=== PATIENT | male | born 1960 | race Caucasian/White ===

== ENCOUNTER 2016-05-26 05:05 | Inpatient (IN) | payer OTHER ==
[2016-05-11 13:34] VITALS: BMI 26.0
[~2016-05-26] VITALS: Ht 172.7 cm; Wt 77.2 kg
[2016-05-26] VITALS (8 sets, daily range): BP systolic 117–144; BP diastolic 70–85; PULSE 70–107; TEMP 36.4–37; O2SAT 97–100; Ht 172.7 cm; Wt 77.2 kg
[~2016-05-26 05:05] MED LIST: CITA20TA4 PO; LISI-461 PO; MONT1TAB3 PO; OXYC-57 PO; PRLSR20 PO
[2016-05-26] MEDS ORDERED: PREGABALIN 75 MG CAP PO SCH (06:00)
[2016-05-26] MEDS ORDERED: CeleBREX 200 MG CAP PO SCH (06:00)
[2016-05-26] MEDS ORDERED: CEFAZOLIN 2000 MG/60 ML D5W IV SCH (06:00)
[2016-05-26] MEDS ORDERED: LACTATED RINGER'S 1000ML 1,000 ML IV SCH (06:00)
[2016-05-26] MEDS ORDERED: MIDAZOLAM HCL 1 MG/ML 2ML VIAL ONE (06:37)
[2016-05-26] MEDS ORDERED: FENTANYL CITRATE INJ 50 MCG/1 ML 2 ML VIAL ONE ×3 (06:37→08:23)
[2016-05-26] MEDS ORDERED: THROMBIN FOR SOLN 20000 UNIT KIT ONE (06:50)
[2016-05-26] MEDS ORDERED: THROMBIN 5000 UNITS KIT ONE (06:50)
[2016-05-26] MEDS ORDERED: BUPIVACAINE/EPINEPHRINE 0.5% MPF 1:200,000 30 ML VIAL ONE (06:50)
[2016-05-26] MEDS ORDERED: BACITRACIN 50000 UNIT VIAL ONE (06:50)
[2016-05-26] MEDS ORDERED: HEPARIN SOD (PORCINE) 1000 UNIT/ML 10 ML VIAL ONE (06:50)
[2016-05-26] MEDS ORDERED: EpHEDrine SULFATE INJ 50 MG/ML AMP IV PRN (07:45)
[2016-05-26] MEDS ORDERED: ATROPINE SULFATE 0.1 MG/ML 5ML SYR IV PRN (07:45)
[2016-05-26] MEDS ORDERED: ONDANSETRON INJ 2 MG/ML 2 ML VIAL IV PRN ×2 (07:45→10:00)
--- NOTE | 2016-05-26 07:54 | History and Physical ---
History & Physical Date May 26, 2016. Chief Complaint LBP and R leg radicular pain History of Present Illness The patient is a 55 year old male with complaints of above who had a prior decompression at L4-5 on right. He developed recurrent pain with numbness and weakness that failed to respond to RUMA/PT/oral meds. He is using a cane and unable to work. MRI shows foraminal HNP R L4-5 and L5-S1. no left leg symptoms. Past Medical/Surgical History sinus surgery [place]-CPAP HTN hi chol reflux OA anxiety tob use Additional History Hepatic Disease: No Endocrine Disorder: No Kidney Disease: No Hypertension: Yes Heart Disease: No Bleeding Tendencies: No Infectious Diseases: No Allergies Coded Allergies: No Known Allergies (Unverified , 05/26/16) Home Medications Scheduled Citalopram Hydrobromide (Citalopram Hydrobromide), 1 TAB PO QAM Lisinopril (Zestril), 10 MG PO QAM Montelukast Sodium (Singulair), 10 MG PO QAM Omeprazole (Prilosec), 20 MG PO QAM Scheduled PRN Oxycodone/Acetaminophen 5MG/325MG (Percocet 5MG/325MG), 1 TABLET PO Q6H PRN for Pain Physical Examination Skin: warm/dry Eyes: normal inspection Head: normocephalic, atraumatic Neck: supple, trachea midline Respiratory/Chest: lungs clear, no respiratory distress Cardiovascular: regular rate, rhythm Back: normal inspection ( midline scar) Extremities: normal inspection, normal range of motion Neurologic/Psych: no motor/sensory deficits (except sl weakness in R ankle DF and positive R SLR), alert, normal reflexes, oriented x 3 Diagnosis L4-5 recurrent HNP, and L5-S1 foraminal HNP Plan of Treatment L4-S1 decompression/fusion
[2016-05-26] MEDS ORDERED: HYDROmorphone INJ 2 MG/ML SYR/VIAL ONE ×2 (08:23→09:40)
[2016-05-26] MEDS ORDERED: LIDOCAINE HCL 2% 2 ML VIAL (20MG/ML) ONE (09:39)
[2016-05-26] MEDS ORDERED: PROPOFOL IV EMULSION 10 MG/ML 20 ML VIAL IV ONE (09:39)
[2016-05-26] MEDS ORDERED: EpHEDrine SULFATE 50MG/5ML SYR ONE (09:39)
[2016-05-26] MEDS ORDERED: ROCURONIUM BROMIDE 10 MG/ML 5 ML VIAL ONE (09:39)
[2016-05-26] MEDS ORDERED: DEXAMETHASONE SOD INJ 4 MG/ML VIAL ONE (09:39)
[2016-05-26] MEDS ORDERED: ESMOLOL HCL 10 MG/ML 10 ML VIAL ONE (09:39)
[2016-05-26] MEDS ORDERED: NEOSTIGMINE METHYLSULFATE 1 MG/ML 10ML VIAL ONE (09:41)
[2016-05-26] MEDS ORDERED: GLYCOPYRROLATE INJ 0.2 MG/ML VIAL ONE (09:41)
[2016-05-26] MEDS ORDERED: ONDANSETRON INJ 2 MG/ML 2 ML VIAL ONE (09:41)
[2016-05-26] MEDS ORDERED: SODIUM CHLORIDE 0.9% 1000ML 1,000 ML IV SCH (09:53)
--- NOTE | 2016-05-26 09:53 | [facility] Post Operative Brief Note ---
Immediate Operative Summary Operative Date May 26, 2016. Pre-Operative Diagnosis L4-5 Recurrent Herniated Nucleus Polposus; L5-S1 Foraminal Herniated Nucleus Polposus Post-Operative Diagnosis L4-5 Recurrent Herniated Nucleus Polposus; L5-S1 Foraminal Herniated Nucleus Polposus Procedure(s) Performed L4-S1 Decompression and Instrumented Fusion; Interbody Cage at L5-S1; with application of Vertical Spine Surgeon Dr. Abraham Cordero Production Troubleshooter Surgeon(s) None Estimated Blood Loss 75mL Findings dict Specimens none per surgeon Dr. Abraham Cordero
[2016-05-26] MEDS ORDERED: LORAZEPAM INJ 0.5 MG in SYRINGE 0.75 ML IV PRN (10:00)
[2016-05-26] MEDS ORDERED: NALOXONE HCL 0.4 MG/1 ML VIAL/CARP IV PRN ×2 (10:00)
[2016-05-26] MEDS ORDERED: ACETAMINOPHEN 500 MG TAB PO PRN (10:00)
[2016-05-26] MEDS ORDERED: LORAZEPAM 0.5 MG TAB PO PRN (10:00)
[2016-05-26] MEDS ORDERED: SOD PHOSPHATE/SOD BIPHOSPHATE ENEMA 132 ML BTL PR PRN (10:00)
[2016-05-26] MEDS ORDERED: ACETAMINOPHEN IV 100 ML IV PRN (10:00)
[2016-05-26] MEDS ORDERED: METOCLOPRAMIDE HCL INJ 5 MG/ML 2 ML VIAL IV PRN (10:00)
[2016-05-26] MEDS ORDERED: ALUMINUM/MAGNESIUM SUSP 30 ML UDC PO PRN (10:00)
[2016-05-26] MEDS ORDERED: PROMETHAZINE HCL INJ 12.5 MG in SODIUM CHLORIDE 0.9% 50ML 50 ML IV PRN (10:00)
[2016-05-26] MEDS ORDERED: MAGNESIUM HYDROXIDE SUSP 30 ML UDC PO PRN (10:00)
[2016-05-26] MEDS ORDERED: BISACODYL 10 MG SUPP PR PRN (10:00)
[2016-05-26] MEDS: FENTANYL CITRATE INJ 50 MCG/1 ML 2 ML VIAL IV PRN ×4 (10:01→10:16)
[2016-05-26] MEDS ORDERED: MoRPHine SULFATE 1 MG/ML 50 ML PCA CASS ONE (10:01)
[2016-05-26] MEDS: HYDROmorphone INJ 1 MG/ML SYR IV PRN ×4 (10:21→10:36)
--- NOTE | 2016-05-26 10:39 | DIAGNOSTIC IMAGING REPORT ---
LUMBAR SPINE, INTRAOPERATIVE FLUOROSCOPY HISTORY: L4-S1 decompression and fusion. FLUOROSCOPY TIME: 8 seconds. FINDINGS: Intraoperative fluoroscopy was provided for the lumbar spine. 2 fluoroscopic spot images were obtained. L4-S1 posterior decompression and fusion with pedicle screws and rods. The hardware is intact. IMPRESSION: Fluoroscopy provided for a L4-S1 posterior decompression and fusion. Electronically signed by: Yuriy Riley M.D. 05/26/2016 10:38 AM Dictated Date/Time: 05/26/2016 10:37 AM
--- NOTE | 2016-05-26 11:42 | Anesthesiology Progress Note ---
Anesthesia Post Op Note Date & Time May 26, 2016 at 11:42 Vital Signs Pain Intensity: 6 Vital Signs Past 12 Hours Date Time Temp Pulse Resp B/P Pulse Ox O2 Delivery O2 Flow Rate FiO2 05/26/16 11:15 98 21 152/88 100 Nasal Cannula 4 05/26/16 11:05 93 13 142/83 100 Nasal Cannula 4 05/26/16 10:55 93 21 145/88 100 Nasal Cannula 4 05/26/16 10:45 36.4 93 19 144/89 96 Nasal Cannula 4 05/26/16 10:35 95 19 165/93 100 Nasal Cannula 4 05/26/16 10:25 90 22 152/85 99 Nasal Cannula 4 05/26/16 10:15 91 13 139/76 98 Mask 10 05/26/16 10:05 92 18 132/103 100 Mask 10 05/26/16 09:59 36.3 89 14 171/84 100 Mask 10 05/26/16 05:46 37 70 18 127/85 97 Room Air Notes Mental Status: alert / awake / arousable, participated in evaluation Pt Amnestic to Procedure: Yes Nausea / Vomiting: adequately controlled Pain: adequately controlled, improving with treatment Airway Patency, RR, SpO2: stable & adequate BP & HR: stable & adequate Hydration State: stable & adequate Anesthetic Complications: no major complications apparent
[2016-05-26] MEDS: MoRPHine SULFATE 1 MG/ML 50 ML PCA CASS IV PRN ×3 (12:38→20:44)
[2016-05-26] MEDS: SODIUM CHLORIDE 0.9% 1000ML 1,000 ML IV SCH (14:47)
[2016-05-26] MEDS: CEFAZOLIN IV 1,000 MG in DEXTROSE 5% 50ML 50 ML IV SCH ×2 (17:16→23:59)
[2016-05-26] MEDS: DEXAMETHASONE INJ 6 MG in SYRINGE 0 ML IV SCH (18:41)
[2016-05-26] MEDS: FAMOTIDINE 20 MG TAB PO PRN (19:46)
[2016-05-26] MEDS: DOCUSATE SODIUM/SENNA 50/8.6MG TAB PO SCH (21:06)
[2016-05-27] MEDS: SODIUM CHLORIDE 0.9% 1000ML 1,000 ML IV SCH
[2016-05-27] MEDS: DEXAMETHASONE INJ 6 MG in SYRINGE 0 ML IV SCH ×2 (01:50→09:33)
[2016-05-27 03:13] VITALS: BP 126/72; PULSE 71; TEMP 36.6; O2SAT 98
[2016-05-27] MEDS ORDERED: NURSING DECISION MEDICATION ORDER SCH (05:30)
[2016-05-27] MEDS ORDERED: DC PCA ONE (06:00)
[2016-05-27] MEDS ORDERED: HYDROmorphone INJ 0.5 MG/0.5 ML SYR IV PRN (06:00)
[2016-05-27 06:11] LABS: COMPLETE YES; HEMATOCRIT 33.9 % (42-52); IG% 0.4 %; LYMPH % 4.2 %; LYMPH ABS # 0.59 K/uL (1.2-3.4); MEAN CELL VOLUME 90.4 fL (80-100); MEAN CORPUSCULAR HEMOGLOBIN 32.3 pg (25-34); MEAN CORPUSCULAR HGB CONC 35.7 g/dl (32-36); MEAN PLATELET VOLUME 10.5 fL (7.4-10.4); MONO % 3.6 %; NEUT % 91.8 %; PLATELET COUNT 209 K/uL (130-400); RED BLOOD COUNT 3.75 M/uL (4.7-6.1); WHITE BLOOD COUNT 14.04 K/uL (4.8-10.8)
[2016-05-27 06:46] LABS: BUN/CREATININE RATIO 10.2 (10-20); CALCIUM 8.7 mg/dl (8.5-10.1); CREATININE 0.93 mg/dl (0.60-1.40); POTASSIUM 3.9 mmol/L (3.5-5.1)
[2016-05-27] MEDS: CITALOPRAM 20 MG TAB PO SCH (07:30)
[2016-05-27] MEDS: MONTELUKAST SOD 10 MG TAB PO SCH (07:30)
[2016-05-27] MEDS: PANTOprazole SOD 40 MG TAB PO SCH (07:30)
[2016-05-27] MEDS: OXYCODONE HCL IR 5 MG TAB (IMMEDIATE RELEASE) PO PRN ×4 (07:30→19:04)
[2016-05-27] MEDS: LISINOPRIL 10 MG TAB PO SCH (07:31)
[2016-05-27 08:06] VITALS: BP 132/78; PULSE 78; TEMP 36.6; O2SAT 96
--- NOTE | 2016-05-27 09:42 | Orthopedic Progress Note ---
Orthopedic Progress Note Date of Service May 27, 2016. Subjective Post OP Day: 1 Reports: feeling well, using LIBRARY PARAPROFESSIONAL, Denies: SOB, calf pain, chest pain, complaints , light headedness, nausea / vomiting Objective calves soft nontender, N/V intact, dressing C/D/I, A&O x3, hemovac drainage Date Time Temp Pulse Resp B/P Pulse Ox O2 Delivery O2 Flow Rate FiO2 05/27/16 08:06 36.6 78 16 132/78 96 Room Air 05/27/16 07:30 Room Air 05/27/16 03:13 36.6 71 16 126/72 98 BiPAP 05/26/16 23:37 36.4 91 16 125/73 97 Room Air 05/26/16 20:04 36.4 73 18 117/70 97 Room Air 05/26/16 19:50 Room Air 05/26/16 15:35 36.4 79 18 117/73 100 Nasal Cannula 4.0 05/26/16 14:29 96 16 131/77 98 Nasal Cannula 4.0 05/26/16 13:32 107 16 137/84 99 Nasal Cannula 4.0 05/26/16 13:05 95 16 134/77 97 Nasal Cannula 4.0 05/26/16 12:35 36.9 97 16 144/80 100 Nasal Cannula 4.0 05/26/16 12:35 Nasal Cannula 4.0 05/26/16 12:35 100 Nasal Cannula 4.0 05/26/16 12:30 98 16 122/78 100 Nasal Cannula 4 05/26/16 12:15 93 17 133/78 98 Nasal Cannula 4 05/26/16 12:00 106 21 159/89 99 Nasal Cannula 4 05/26/16 11:45 87 13 132/77 100 Nasal Cannula 4 05/26/16 11:30 102 24 141/85 100 Nasal Cannula 4 05/26/16 11:15 98 21 152/88 100 Nasal Cannula 4 05/26/16 11:05 93 13 142/83 100 Nasal Cannula 4 05/26/16 10:55 93 21 145/88 100 Nasal Cannula 4 05/26/16 10:45 36.4 93 19 144/89 96 Nasal Cannula 4 05/26/16 10:35 95 19 165/93 100 Nasal Cannula 4 05/26/16 10:25 90 22 152/85 99 Nasal Cannula 4 05/26/16 10:15 91 13 139/76 98 Mask 10 05/26/16 10:05 92 18 132/103 100 Mask 10 05/26/16 09:59 36.3 89 14 171/84 100 Mask 10 Laboratory Results 24 Hours: Test 05/27/16 05:23 White Blood Count 14.04 K/uL Red Blood Count 3.75 M/uL Hemoglobin 12.1 g/dL Hematocrit 33.9 % Mean Corpuscular Volume 90.4 fL Mean Corpuscular Hemoglobin 32.3 pg Mean Corpuscular Hemoglobin Concent 35.7 g/dl Platelet Count 209 K/uL Mean Platelet Volume 10.5 fL Neutrophils (%) (Auto) 91.8 % Lymphocytes (%) (Auto) 4.2 % Monocytes (%) (Auto) 3.6 % Eosinophils (%) (Auto) 0.0 % Basophils (%) (Auto) 0.0 % Neutrophils # (Auto) 12.89 K/uL Lymphocytes # (Auto) 0.59 K/uL Monocytes # (Auto) 0.51 K/uL Eosinophils # (Auto) 0.00 K/uL Basophils # (Auto) 0.00 K/uL Assessment & Plan Assessment: stable POD 1, start PT, scds, d/c sat?, bowel regimen Discharge Planning Discharge Planning: home Pain Management: Oxy IR DVT Prophylaxis: SCDs Therapy: Physical Therapy
[2016-05-27 10:56] VITALS: O2SAT 96
[2016-05-27] MEDS: HYDROmorphone INJ 1 MG/ML SYR IV PRN ×2 (11:14→15:48)
[2016-05-27 11:37] VITALS: BP 140/80; PULSE 75; TEMP 36.4; O2SAT 94
--- NOTE | 2016-05-27 13:04 | Discharge Instructions ---
Discharge Instructions Date of Service May 27, 2016. Admission Reason for Admission: Lumbar Spinal Stenosis Discharge Discharge Diagnosis / Problem: Lumbar Spinal Stenosis Discharge Goals Goal(s): Decrease discomfort, Improve function, Increase independence Activity Recommendations Activity Limitations: as noted below Lifting Limitations: no more than 5 pounds Exercise/Sports Limitations: none May Resume Sexual Activity: after follow-up appointment Shower/Bathe: may shower/bathe in 3 days . Instructions / Follow-Up Instructions / Follow-Up ACTIVITY RECOMMENDATIONS: SELF CARE INSTRUCTIONS AFTER THORACIC/LUMBAR FUSIONS 1. You may walk to your tolerance. It is good exercise for your legs and back. Expect some back and intermittent leg aches and pains. 2. You may perform "counter-top" level activities (make a sandwich, norris with a project, etc.). 3. No bending or lifting of more than 10 pounds or back twisting of any nature (roll like a log when turning in bed). 4. You may ride in a car for 20-30 minutes at a time. No driving until after your first visit with your doctor. 5. Frequent changes of position and restricting sitting to 30 minutes at a time will help limit the amount of back spasms and stiffness you may experience. 6. You may discontinue the use of ambulatory aids (cane, crutches, etc.) once your strength and confidence allow. 7. You may assurance senior manager insurance the shower and let water strike your incision when you arrive home at least once daily. Do not take a tub bath, sit in a hot tub or go into a swimming pool until after your first recheck in the office. SPECIAL CARE INSTRUCTIONS: VERY IMPORTANT TO READ AND REVIEW A. Your surgical incision has been closed with a cosmetic suture under the skin that will dissolve in about 6 weeks. In 14 days, you can use a pair of clean scissors and cut the suture that is left outside of the skin at the ends of your incision. 1. The small skin tapes can be removed 7 days after surgery if they have not fallen off by that point. 2. You may keep the wound open to air as much as possible to promote healing after post-op day number 5 unless told otherwise by your doctor. 3. If you think the wound looks like it is becoming infected (redness or worsening drainage) and/or you are experiencing fever, chill or worsening back pain and muscle spasms, contact the office so that we may evaluate you as soon as possible. B. Complications are uncommon, but please contact us if you have any signs or symptoms of: 1. wound infection (fever higher than 102.5 degrees F, redness, separation of wound, drainage, or increasing pain from the incision) 2. blood clots in legs (pain, swelling, redness and warmth in legs) 3. urinary tract infection (fever higher than 102.5 degrees F, burning upon urination or increased frequency of urination) 4. nerve problems (inability to walk on your toes or heels, numbness, loss of bowel or bladder control) 5. any other symptoms that concern you C. Please call the office at if you have any concerns or questions about your operation or recovery. D. No smoking! Smoking drastically decreases the chance of a solid fusion. E. Do not take any anti-inflammatory medications (Indocin, Advil, Motrin, Aspirin, Naprosyn, etc.) as these may inhibit the chance of a solid fusion. Tylenol is okay to take for pain. MANAGING PAIN AFTER SPINAL SURGERY 1. Narcotic medication is intended for short-term use and will be provided for surgical pain. Surgical pain usually lasts for a period of 4-6 weeks. Narcotic medication includes Percocet, Vicodin, Darvocet, Tylenol #3 or Lortab. 2. Longer-term pain is more appropriately treated with non-narcotic medication such as Tylenol ES. 3. Muscle spasm is not appropriately treated with narcotics. Muscle relaxers such as Soma, Flexeril or Skelaxin can be used along with Tylenol ES. 4. Remember that we all live with some "aches and pains". This is not unusual or uncommon after an injury or as we get older. a. Back pain is expected and may include muscle spasms for 4 to 6 weeks after surgery. The pain should gradually improve. If the pain worsens for no apparent reason, please contact the office. b. Intermittent leg pain may also be experienced and should not be concerned about unless it worsens for no apparent reason. If so, please contact the office. 5. We will provide appropriate medication within the normal guidelines of their prescribed use. We will also be very cautious and aware of potential abuse and extended duration of patients' medication needs. a. Pain medications are for your comfort and to assist with sleep and rest so that the tissue can heal. They are not provided in order to return to normal activity and should not be used through the day. To do so or worsening pain at night can result from ongoing tissue damage and development of tolerance to the prescribed medicine. 6. Please allow 2-3 days to process refills. Prescriptions will not be mailed but must be picked up at the office. FOLLOW UP VISIT: Keep your scheduled follow-up appointment. Any questions, please call the office at . Current Hospital Diet Patient's current hospital diet: Regular Diet Discharge Diet Recommended Diet: Regular Diet Procedures Procedures Performed: L4-S1 Decompression and Instrumented Fusion; Interbody Cage at L5-S1; with application of Vertical Spine Pending Studies Studies pending at discharge: no Medical Emergencies . Who to Call and When: Medical Emergencies: If at any time you feel your situation is an emergency, please call 911 immediately. . Non-Emergent Contact Non-Emergency issues call your: Surgeon Call Non-Emergent contact if: temperature is above 101, your pain is not controlled, your pain is concerning you, wound has increased drainage, you have any medication questions . "Provider Documentation" section prepared by Abraham Cordero. VTE Core Measure Inpt VTE Proph given/why not?: T.E.Felecia Stockings
[2016-05-27 15:06] VITALS: BP 115/66; PULSE 69; TEMP 36.5; O2SAT 97
[2016-05-27 19:15] VITALS: BP 114/69; PULSE 74; TEMP 36.4; O2SAT 96
[2016-05-27] MEDS: FAMOTIDINE 20 MG TAB PO PRN (20:03)
[2016-05-27] MEDS: DOCUSATE SODIUM/SENNA 50/8.6MG TAB PO SCH (20:03)
[2016-05-28] VITALS: BP 119/67; PULSE 83; TEMP 36.5; O2SAT 97
[2016-05-28] MEDS: OXYCODONE HCL IR 5 MG TAB (IMMEDIATE RELEASE) PO PRN ×3 (00:06→10:03)
[2016-05-28] MEDS ORDERED: POLYETHYLENE (MIRALAX) 17 GM PACK PO SCH (06:00)
[2016-05-28 06:05] VITALS: BP 107/67; PULSE 72; TEMP 36.6; O2SAT 99
[2016-05-28] MEDS: HYDROmorphone INJ 1 MG/ML SYR IV PRN (07:27)
[2016-05-28] MEDS: LISINOPRIL 10 MG TAB PO SCH (07:28)
[2016-05-28] MEDS: CITALOPRAM 20 MG TAB PO SCH (07:28)
[2016-05-28] MEDS: PANTOprazole SOD 40 MG TAB PO SCH (07:28)
[2016-05-28] MEDS: MONTELUKAST SOD 10 MG TAB PO SCH (07:28)
[2016-05-28 08:02] VITALS: BP 118/72; PULSE 73; TEMP 36.7; O2SAT 99
[2016-05-28 08:26] VITALS: BP 118/72; PULSE 73; TEMP 36.7; O2SAT 99
--- NOTE | 2016-05-28 09:26 | Orthopedic Progress Note ---
Orthopedic Progress Note Date of Service May 28, 2016. Subjective Post OP Day: 2 Reports: feeling well, pain controlled w PO medications, Denies: SOB, calf pain , chest pain, complaints, light headedness, nausea / vomiting, using MACHINE SETUP OPERATOR Objective N/V intact, dressing C/D/I, A&O x3, hemovac drainage Date Time Temp Pulse Resp B/P Pulse Ox O2 Delivery O2 Flow Rate FiO2 05/28/16 08:26 36.7 73 16 99 Room Air CPAP 05/28/16 08:02 36.7 73 16 118/72 99 Room Air 05/28/16 07:06 Room Air 05/28/16 06:05 36.6 72 16 107/67 99 Room Air 05/28/16 00:00 Room Air CPAP 05/28/16 00:00 36.5 83 16 119/67 97 CPAP 05/27/16 19:15 36.4 74 16 114/69 96 Room Air 05/27/16 15:45 Room Air 05/27/16 15:06 36.5 69 16 115/66 97 Room Air 05/27/16 11:37 36.4 75 18 140/80 94 Room Air 05/27/16 10:56 96 Room Air Assessment & Plan Assessment: stable POD2 scds, d/c sat?, bowel regimen Discharge Planning Discharge Planning: home Pain Management: Oxy IR DVT Prophylaxis: SCDs Therapy: Physical Therapy
[2016-05-28 10:36] VITALS: O2SAT 99
--- NOTE | 2016-05-31 14:45 | Discharge Summary ---
Orthopedic Discharge Summary Admission Date/Reason May 26, 2016 at 09:56 Lumbar Spinal Stenosis. Discharge Date/Disposition May 28, 2016 Home Diagnosis Principal Diagnosis: same Procedure(s) Performed L4-S1 decompression/fusion Medication Reconciliation Continued Medications: Citalopram Hydrobromide (Citalopram Hydrobromide) 20 Mg Tab 1 TAB PO QAM for 90 Days, #90 TAB 3 Refills Lisinopril (Zestril) 10 Mg Tab 10 MG PO QAM, TAB Montelukast Sodium (Singulair) 10 Mg Tab 10 MG PO QAM, TAB Omeprazole (Prilosec) 20 Mg Capcr 20 MG PO QAM, CAP Oxycodone/Acetaminophen 5MG/325MG (Percocet 5MG/325MG) Tab 1 TABLET PO Q6H PRN for Pain, TAB PAIN Admission Physical Exam As per Admitting History & Physical. Hospital Course He was admitted for elective lumbar surgery. He tolerated procedure well and had no complications. He was stable during his hosptial course, tolerated diet , progressed with PT, had SCDs for DVT prophylaxis and a bowel regimen and was discharged to home in stable condition. Discharge Instructions Please refer to the electronic Patient Visit Report (Discharge Instructions) for additional information.
--- NOTE | 2016-05-31 17:27 | OPERATIVE REPORT ---
DATE OF OPERATION: 05/26/2016 PREOPERATIVE DIAGNOSES: 1. Recurrent L4-5 herniated nucleus pulposus. 2. L5-S1 foraminal disc herniation. 3. L4-5 and L5-S1 disc degeneration and facet arthrosis. POSTOPERATIVE DIAGNOSES: Same. PROCEDURES: 1. Revision laminectomy of L4 and L5 laminectomy. 2. Segmental pedicle screw instrumentation -- bilateral L4, L5 and S1 with K2M Ama pedicle screws. 3. Posterolateral fusion L4-S1 -- bilateral with Infuse BMP on a collagen sponge, tricalcium phosphate, local bone, bone putty and bone marrow aspirate. 4. Right iliac crest bone marrow aspiration stem cell concentration with Arteriocyte. 5. Right L5-S1 transforaminal lumbar interbody fusion with K2M titanium mesh interbody spacer, local bone and bone putty. SURGEON: Dr. Cordero. DYNAMO REPAIRER: OR staff. ANESTHESIA: General endotracheal anesthesia. COMPLICATIONS: None. ESTIMATED BLOOD LOSS: Per anesthesia record. DESCRIPTION OF PROCEDURE: After identification of patient and operative level, he was brought to the OR where he underwent induction of general anesthesia. He was then positioned prone on [facility] OR table with all bony prominences well padded. Care was taken to avoid pressure on the periorbital area. Lumbosacral area was sterilely prepped and draped in usual fashion. Antibiotics were administered. Time-out was performed. Level was confirmed and skin incision made from spinous process of L4 to the sacrum. Posterior exposure was accomplished. Gelpi retractors were placed. Level was confirmed with fluoroscopy and the operative levels were marked. Previous right-sided L4 laminotomy was noted. I did a revision laminectomy of L4, took down the adhesions and scar tissue removed majority of the facets at L4-5 on the right. I then did a laminectomy of L5, took down ligament flavum here as well as the medial facets at L5-S1 and did a wide foraminotomy at the level of the foraminal disc herniation. This extended out into the right L5-S1 neural foramen and this was removed in its entirety. I then did a complete discectomy at L5-S1 and I prepared disc space for subsequent barbra and curettes. I placed K2M Ama pedicle screws bilaterally from L4 to the sacrum, 2 screws in each level and checked position with fluoroscopy. All screws had good bony purchase. I then aspirated bone marrow from the right iliac crest via separate stab incision with a Jamshidi needle and concentrated with a stem cell concentration system and applied to bone graft medical resident packed the titanium mesh cage from [facility] with a bone graft mixture and local bone and then tamped into the disk space at L5-S1 from the right. I then lowered the Shawn frame to restore lordosis after confirming the cage was stable. I then placed rods and endcaps from L4 to sacrum bilaterally and final tightened. I irrigated with bacitracin solution and then decorticated with a high speed tanner at both transverse processes from L4 to the sacral ala bilaterally as well as facets at L4-5 and L5-S1. I then confirmed decompression was adequate from L4 to sacrum bilaterally and placed bone graft over the exposed lateral gutters from L4 to the sacrum. I then closed over ORTIZ drain and closed in layered fashion. All sponge and needle counts were correct at the end of the case. I attest to the content of the Intraoperative Record and any orders documented therein. Any exceptions are noted below. REINIER
== END 2016-05-28 10:18 | disposition home or self-care (01) | DRG 460 ==
LOC: ENRESERVDT → ENRESERVTM → C.ACU 05:05 → C.3E 09:56
PROVIDERS: ADMIT Orthopaedic Surgery Orthopaedic Surgery of the Spine; ATTEND Orthopaedic Surgery Orthopaedic Surgery of the Spine
PROC: 0SG3071 Fusion of Lumbosacral Joint with Autologous Tissue Substitute, Posterior Approach, Posterior Column, Open Approach (ICD-10-PCS; principal; 2016-05-26 07:30)
PROC: 0SG30AJ Fusion of Lumbosacral Joint with Interbody Fusion Device, Posterior Approach, Anterior Column, Open Approach (ICD-10-PCS; principal; 2016-05-26 07:30)
PROC: 0ST40ZZ Resection of Lumbosacral Disc, Open Approach (ICD-10-PCS; principal; 2016-05-26 07:30)
PROC: 07DR3ZZ Extraction of Iliac Bone Marrow, Percutaneous Approach (ICD-10-PCS; principal; 2016-05-26 07:30)
PROC: 0SG0071 Fusion of Lumbar Vertebral Joint with Autologous Tissue Substitute, Posterior Approach, Posterior Column, Open Approach (ICD-10-PCS; principal; 2016-05-26 07:30)
PROC: 3E0U0GB Introduction of Recombinant Bone Morphogenetic Protein into Joints, Open Approach (ICD-10-PCS; principal; 2016-05-26 07:30)
DX: M51.26 Other intervertebral disc displacement, lumbar region (principal); M51.27 Other intervertebral disc displacement, lumbosacral region; M51.36 Other intervertebral disc degeneration, lumbar region; M51.37 Other intervertebral disc degeneration, lumbosacral region; M47.896 Other spondylosis, lumbar region; M47.897 Other spondylosis, lumbosacral region; I10 Essential (primary) hypertension; K21.9 Gastro-esophageal reflux disease without esophagitis; R01.1 Cardiac murmur, unspecified; M19.90 Unspecified osteoarthritis, unspecified site; F41.9 Anxiety disorder, unspecified; F17.210 Nicotine dependence, cigarettes, uncomplicated; G47.33 Obstructive sleep apnea (adult) (pediatric); Z99.89 Dependence on other enabling machines and devices; Z79.891 Long term (current) use of opiate analgesic; Z79.899 Other long term (current) drug therapy